=== PATIENT | female | born 1970 | race American Indian/Alaskan Native ===

== ENCOUNTER 2020-05-29 02:27 | Inpatient (IN) | payer MEDICAID, OTHER ==
--- NOTE | 2020-05-29 03:05 | Emergency Department Report ---
HPI - General Time Seen by Provider: 05/29/20 02:39 - HPI HPI: Room 8 The patient is a 49-year-old female present with a chief complaint of slow speech. Patient states she awakened at 01: 00 this morning and thought that her blood sugar was low secondary to having cramping in her left lower extremity and slowed speech. Patient denies weakness or paresthesia ED Past Medical Hx - Past Medical History Hx Hypertension: Yes Hx CVA: Yes (TIA) Hx Diabetes: Yes - Surgical History Past Surgical History?: No - Family History Family history: no significant - Social History Substance Use Type: None ED Review of Systems ROS: Stated complaint: SLURRED SPEECH Other details as noted in HPI Constitutional: no symptoms reported Respiratory: no symptoms reported Endocrine: no symptoms reported Neurological: other (Change in speech pattern). denies: weakness, paresthesias Physical Exam - Physical Exam Physical Exam: GENERAL: The patient is well-developed well-nourished female lying on stretcher with slow speech. [] HEENT: Normocephalic. Atraumatic. Extraocular motions are intact. Patient has moist mucous membranes. NECK: Supple. Trachea midline CHEST/LUNGS: Clear to auscultation. There is no respiratory distress noted. HEART/CARDIOVASCULAR: Regular. There is no tachycardia. There is no gallop rub or murmur. ABDOMEN: Abdomen is soft, nontender. Patient has normal bowel sounds. There is no abdominal distention. SKIN: There is no rash. There is no edema. There is no diaphoresis. NEURO: The patient is awake, alert, and oriented. The patient is cooperative. Cranial nerves II through XII grossly intact. Patient exhibits slight weakness raising right lower extremity from stretcher. The patient has slow speech MUSCULOSKELETAL: There is no evidence of acute injury. ED Medical Decision Making - Lab Data Result diagrams: 05/29/20 03:18 05/29/20 03:18 - EKG Data -: EKG Interpreted by Me EKG shows normal: sinus rhythm Rate: normal - EKG Data When compared to previous EKG there are: previous EKG unavailable Interpretation: nonspecific ST-T wave george (T wave inversion in lead III) - Radiology Data Radiology results: report reviewed (CTA brain, CTA neck, CT head), image reviewed (CTA brain, CTA neck, CT head) [facility] [address] [place] [address] Cat Scan Report Signed Patient: TASHA DONIS MR#: [id number] 433 : 1970 Acct:[id number] Age/Sex: 49 / F ADM Date: 05/29/20 Loc: ED Attending Dr: Ordering Physician: CROW MAJOR MD Date of Service: 05/29/20 Procedure(s): CT angio neck Accession Number(s): [id number] cc: CROW MAJOR MD CT angio neck INDICATION / CLINICAL INFORMATION: 49 years Female; stroke. TECHNIQUE: Thin cut axial images obtained through the head during IV bolus contrast administration. Sagittal, coronal, and 3 plane MIP reconstructions performed by the techno logist. NASCET type criteria used evaluate stenoses. All CT scans at this location are performed using CT dose reduction for ALARA by means of automated exposure control. COMPARISON: None available. FINDINGS: CAROTID ARTERIES: There is mild plaque involving proximal internal carotid arteries bilaterally. However, there is no significant stenosis by NASCET criteria. The common carotid arteries also demonstrate appropriate caliber bilaterally. VERTEBRAL ARTERIES: There is mild relative hypoplasia of the left vertebral artery. There is no significant focal narrowing involving the vertebral arteries bilaterally. ARCH: There is no significant stenosis of the arch vessels. ADDITIONAL FINDINGS: Rem ainder of the surrounding soft tissues are grossly normal. IMPRESSION: There is mild atherosclerotic plaque involving proximal internal carotid arteries bilaterally. However, there is no significant stenosis by NASCET criteria. Signer Name: Tima Daley MD Signed: 05/29/2020 3:37 AM Workstation Name: [id number] Transcribed By: MR Dictated By: Tima Daley MD Electronically Authenticated By: Tima Daley MD Signed Date/Time: 05/29/20336 DD/ 033 TD/TT: CT angio head INDICATION / CLINICAL INFORMATION: 49 years Female; stroke. TECHNIQUE: Thin cut axial images obtained through the head during IV bolus contrast administration. Sagittal, coronal, and 3 plane MIP reconstructions performed by the technologist. NASCET type criteria used evaluate stenoses. Automated exposure control utilized for radiation reduction purposes. COMPARISON: None available. FINDINGS: INTERNAL CAROTID ARTERIES: There is scattered atherosclerotic calcification involving distal internal carotid arteries with mild segmental narrowing by NASCET criteria, particularly involving the cavernous segments. 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 There is no significant focal stenosis involving the basilar artery. CEREBRAL ARTERIES: There is developmental hypoplasia of the A1 segment of the right EDOUARD. There is no CTA evidence of significant stenosis involving proximal cerebral arteries or evidence of large v essel occlusion. ANEURYSM: There is an aneurysm extending medially and superiorly from the ophthalmic segment of the left ICA measuring 3.0 mm AP by 3.5 mm longitudinally the findings are most consistent with incidental infundibulum of the right posterior communicating artery. ADDITIONAL FINDINGS: T here is developmental hypoplasia of the left transverse and sigmoid sinuses. IMPRESSION: There is atherosclerotic calcification involving distal internal carotid arteries with mild segmental narrowing. There is no CT evidence of large vessel occlusion. 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 Signer Name: Tima Daley MD Signed: 05/29/2020 3:47 AM Workstation Name: [id number] Transcribed By: MR Dictated By: Tima Daley MD Electronically Authenticated By: Tima Daley MD Signed Date/Time: 05/29/20346 DD/ 6 TD/TT: [facility] [address] [place] [address] Cat Scan Report Signed Patient: TASHA DONIS MR#: [id number] : 1970 Acct:[id number] Age/Sex: 49 / F ADM Date: 05/29/20 Loc: ED Attending Dr: Ordering Physician: MICHELE GOINS MD Date of Service: 05/29/20 Procedure(s): CT head/brain wo con Accession Number(s): [id number] cc: MICHELE GOINS MD CT head without contrast INDICATION : Altered speech. Code stroke TECHNIQUE: Axial imaging performed from the skull apex through the skull base without the use of contrast. All CT examinations performed at this facility utilize dose modulation, iterative reconstruction or weight-based dosing, when appropriate, to reduce radiation dose to as low as reasonably achievable. COMPARISON: None FINDINGS: No acute intracranial hemorrhage or parenchymal abnormality. Ventricles are normal in size and appear symmetric. Soft tissues including the orbits appear normal. No acute osseous abnormality. Sinuses and mastoid air ce lls are clear. IMPRESSION: No acute abnormality. Code stroke report was called to Dr. Goins by Dr. Zhao view telephone at 2:05 PM Central time on the day of the exam. Signer Name: Esequiel Zhao MD Signed: 05/29/2020 3:05 AM Workstation Name: [id number] Transcribed By: Dictated By: Esequiel Zhao MD Electronically Authenticated By: Esequiel Zhao MD Signed Date/Time: 05/29/20304 DD/ 1 TD/TT: - Differential Diagnosis CVA, TIA Critical care attestation.: If time is entered above; I have spent that time in minutes in the direct care of this critically ill patient, excluding procedure time. ED Disposition Clinical Impression: CVA (cerebral vascular accident) Disposition: -09 OP ADMIT IP TO THIS HOSP Is pt being admited?: Yes Does the pt Need Aspirin: Yes Condition: Fair Referrals: PRIMARY CARE, [Primary Care Provider] - 3-5 Days Time of Disposition: 04:02 (Hospitalist paged (Dr Faust))
--- NOTE | 2020-05-29 03:06 | Consultation ---
History of Present Illness Consult date: 05/29/20 Assessment and Plan [facility] Date of Service: 05/29/2020 02:38:51 Impression: Rule Out Acute Ischemic Stroke Comments/Sign-Out: 49 yo F h/o TIA, HTN, DM, on Eliquis p/w episode of generalized weakness and speech abnormality upon waking up. Pt had previous TIA consisting of hallucinations. She has been taking Eliquis daily. Pt's symptoms improving per [place]. History from patient. Mechanism of Stroke: Not Clear Metrics: Last Known Well: 05/28/2020 22:00:00 [facility] Notification Time: 05/29/2020 02:38:27 Arrival Time: 05/29/2020 02:38:00 Stamp Time: 05/29/2020 02:38:51 Time First Login Attempt: 05/29/2020 02:42:35 Video Start Time: 05/29/2020 02:42:35 Symptoms: generalized weakness, speech abnormality NIHSS Start Assessment Time: 05/29/2020 02:46:38 Patient is not a candidate for tPA. Patient was not deemed candidate for tPA thrombolytics because of Use of NOAs within [address] head showed no acute hemorrhage or acute core infarct. Lower Likelihood of Large Vessel Occlusion but Following Stat Studies are Recommended CTA Head and Neck. Sign Out: Inpatient admission and stroke workup Discussed with Emergency Department Provider History of Present Illness: Patient is a 49 year old Female. Patient was brought by EMS for symptoms of generalized weakness, speech abnormality 49 yo F h/o TIA, HTN, DM, on Eliquis p/w episode of generalized weakness and speech abnormality upon waking up. Pt had previous TIA consisting of hallucinations. She has been taking Eliquis daily. Pt's symptoms improving per bellstaff. History from patient. There is history of Recent Anticoagulants. Examination: BP(148/73), Blood Glucose(301) 1A: Level of Consciousness - Alert; keenly responsive + 0 1B: Ask Month and Age - Both Questions Right + 0 1C: Blink Eyes & Squeeze Hands - Performs Both Tasks + 0 2: Test Horizontal Extraocular Movements - Normal + 0 3: Test Visual [place] - No Visual Loss + 0 4: Test Facial Palsy (Use Grimace if Obtunded) - Normal symmetry + 0 5A: Test Left Arm Motor Drift - No Drift for 10 Seconds + 0 5B: Test Right Arm Motor Drift - No Drift for 10 Seconds + 0 6A: Test Left Leg Motor Drift - No Drift for 5 Seconds + 0 6B: Test Right Leg Motor Drift - Drift, but doesn't hit bed + 1 7: Test Limb Ataxia (FNF/Heel-Sharma) - No Ataxia + 0 8: Test Sensation - Mild-Moderate Loss: Less Sharp/More Dull + 1 9: Test Language/Aphasia - Normal; No aphasia + 0 10: Test Dysarthria - Normal + 0 11: Test Extinction/Inattention - No abnormality + 0 NIHSS Score: 2 Patient/Family was informed the Neurology Consult would happen via TeleHealth consult by way of interactive audio and video telecommunications and consented to receiving care in this manner. Due to the immediate potential for life-threatening deterioration due to underlying acute neurologic illness, I spent 35 minutes providing critical care. This time includes time for face to face visit via telemedicine, review of medical records, imaging studies and discussion of findings with providers, the patient and/or family. Dr Haydee Landon [facility] Case [id number]
--- NOTE | 2020-05-29 03:10 | Cat Scan Report ---
CT head without contrast INDICATION : Altered speech. Code stroke TECHNIQUE: Axial imaging performed from the skull apex through the skull base without the use of con trast. All CT examinations performed at this facility utilize dose modulation, iterative reconstruct ion or weight-based dosing, when appropriate, to reduce radiation dose to as low as reasonably achiev able. COMPARISON: None FINDINGS: No acute intracranial hemorrhage or parenchymal abnormality. Ventricles are normal in si ze and appear symmetric. Soft tissues including the orbits appear normal. No acute osseous abnorm ality. Sinuses and mastoid air cells are clear. IMPRESSION: No acute abnormality. Code stroke report was called to Dr. Estevez by Dr. Zhao view telephone at 2:05 PM Central time on the d ay of the exam. Signer Name: Esequiel Zhao MD Signed: 05/29/2020 3:05 AM Workstation Name: [id number]
[2020-05-29 03:28] LABS: Basophils # (Auto) 0.1 K/mm3 (0.0-0.1); Basophils % (Auto) 1.1 % (0.0-1.8); Eosinophils # (Auto) 0.1 K/mm3 (0.0-0.4); Eosinophils % (Auto) 0.8 % (0.0-4.3); Lymphocytes # (Auto) 2.1 K/mm3 (1.2-5.4); Lymphocytes % (Auto) 23.2 % (13.4-35.0); Mean Corpuscular HGB Conc 30 % (30-34); Monocytes # (Auto) 0.7 K/mm3 (0.0-0.8); Platelet Count 258 K/mm3 (140-440); Red Blood Count 5.15 M/mm3 (3.65-5.03); Red Cell Distribution Width 19.9 % (13.2-15.2)
[2020-05-29 03:31] LABS: Hematocrit 32.8 % (30.3-42.9); Hemoglobin 9.8 gm/dl (10.1-14.3); Mean Corpuscular Volume 64 fl (79-97)
[2020-05-29 03:40] LABS: BUN/Creatinine Ratio 19; Blood Urea Nitrogen 15 mg/dL (7-17); Calcium 8.9 mg/dL (8.4-10.2); Hemolysis Index 3
[2020-05-29 03:41] LABS: INR 1.1 (0.87-1.13)
--- NOTE | 2020-05-29 03:42 | Cat Scan Report ---
CT angio neck INDICATION / CLINICAL INFORMATION: 49 years Female; stroke. TECHNIQUE: Thin cut axial images obtained through the head during IV bolus contrast administration. S agittal, coronal, and 3 plane MIP reconstructions performed by the technologist. NASCET type criteria used evaluate stenoses. All CT scans at this location are performed using CT dose reduction for ALAR A by means of automated exposure control. COMPARISON: None available. FINDINGS: CAROTID ARTERIES: There is mild plaque involving proximal internal carotid arteries bilaterally. Florez alda, there is no significant stenosis by NASCET criteria. The common carotid arteries also demonstrat e appropriate caliber bilaterally. VERTEBRAL ARTERIES: There is mild relative hypoplasia of the left vertebral artery. There is no signi ficant focal narrowing involving the vertebral arteries bilaterally. ARCH: There is no significant stenosis of the arch vessels. ADDITIONAL FINDINGS: Remainder of the surrounding soft tissues are grossly normal. IMPRESSION: There is mild atherosclerotic plaque involving proximal internal carotid arteries bilaterally. Howeve r, there is no significant stenosis by NASCET criteria. Signer Name: Tima Daley MD Signed: 05/29/2020 3:37 AM Workstation Name: [id number]
[2020-05-29 03:44] LABS: Partial Thromboplastin Time 30.4 Sec. (24.2-36.6); Thrombin Time 17.4 Sec. (15.1-19.6)
--- NOTE | 2020-05-29 03:51 | Cat Scan Report ---
CT angio head INDICATION / CLINICAL INFORMATION: 49 years Female; stroke. TECHNIQUE: Thin cut axial images obtained through the head during IV bolus contrast administration. S agittal, coronal, and 3 plane MIP reconstructions performed by the technologist. NASCET type criteria used evaluate stenoses. Automated exposure control utilized for radiation reduction purposes. COMPARISON: None available. FINDINGS: INTERNAL CAROTID ARTERIES: There is scattered atherosclerotic calcification involving distal internal carotid arteries with mild segmental narrowing by NASCET criteria, particularly involving the cavern ous segments. 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 There is no significant focal stenosis involving the basilar artery. CEREBRAL ARTERIES: There is developmental hypoplasia of the A1 segment of the right EDOUARD. There is no CTA evidence of significant stenosis involving proximal cerebral arteries or evidence of large vessel occlusion. ANEURYSM: There is an aneurysm extending medially and superiorly from the ophthalmic segment of the l eft ICA measuring 3.0 mm AP by 3.5 mm longitudinally the findings are most consistent with incidental infundibulum of the right posterior communicating artery. ADDITIONAL FINDINGS: There is developmental hypoplasia of the left transverse and sigmoid sinuses. IMPRESSION: There is atherosclerotic calcification involving distal internal carotid arteries with mild segmental narrowing. There is no CT evidence of large vessel occlusion. 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 Signer Name: Tima Daley MD Signed: 05/29/2020 3:47 AM Workstation Name: [id number]
[2020-05-29] MEDS ORDERED: ASPIRIN 325 MG TAB PO ONE (04:04)
[2020-05-29] MEDS ORDERED: CYCLOBENZAPRINE 10 MG TAB PO ONE (04:18)
--- NOTE | 2020-05-29 05:52 | History and Physical Report ---
History of Present Illness Date of examination: 05/29/20 Date of admission: 05/29/20 Chief complaint: Chief complaint is speech impairment History of present illness: History of presenting illness, patient is a 49-year-old female who woke up early this morning with speech impairment that manifested as slurred speech and also patient had cramps in the lower extremities and said for brief period of time she could not see properly. There was no history of chest pain, shortness of breath, fever or chills or nausea and vomiting, patient also denied history of dizziness or headache. Past History Past Medical History: diabetes, hypertension, other (TIA) Review of Systems Constitutional: weakness, no fever, no chills, no fatigue Eyes: bilateral: other (NO BILATERAL EYE SYMPTOMS) Ears, nose, mouth and throat: no ear pain, no ear discharge, no nose pain, no nasal congestion, no nasal discharge, no sore throat Breasts: deferred Cardiovascular: high blood pressure, no chest pain, no palpitations, no lightheadedness, no shortness of breath Respiratory: no cough, no hemoptysis, no shortness of breath, no dyspnea on exertion Gastrointestinal: no nausea, no vomiting, no loss of appetite, no heartburn Genitourinary Female: no Rectal: no pain, no itching Musculoskeletal: no neck stiffness, no neck pain, no shooting arm pain, no arm numbness/tingling, no low back pain, no shooting leg pain, no hot joints, no morning stiffness, no muscle weakness, no muscle cramps, no myalgias Integumentary: no rash, no pruritis, no redness, no sores, no wounds, no jaundice, no boils, no lesions, no darkening of skin, no depigmentation, no acne, no hirsutism Neurological: weakness, change in speech, no parathesias, no numbness, no tingling, no seizures, no syncope, no vertigo, no headaches, no convulsions, no change in mentation, no confusion, no sensory deficit Psychiatric: no anxiety, no sleep disturbances, no hypersomnia, no depression, no hopelessness Endocrine: no polydipsia, no polyuria, no nocturia, no palpatations Hematologic/Lymphatic: no easy bruising, no easy bleeding, no lymphadenopathy, no lymphedema Exam - Constitutional Vitals: Temp Pulse Resp BP Pulse Ox 98.0 F 78 18 147/78 100 05/29/20 02:40 05/29/20 02:40 05/29/20 03:15 05/29/20 02:40 05/29/20 02:40 General appearance: Present: no acute distress - EENT Eyes: Present: PERRL, EOM intact. Absent: conjunctival injection ENT: hearing intact, clear oral mucosa, dentition normal - Neck Neck: Present: supple, normal ROM - Respiratory Respiratory effort: normal - Cardiovascular Rhythm: regular Heart Sounds: Present: S1 & S2. Absent: gallop, systolic murmur, diastolic murmur - Extremities Extremities: no ischemia, No edema Peripheral Pulses: within normal limits - Abdominal General gastrointestinal: Present: soft, non-tender, non-distended. Absent: tender, distended, rigid, hepatomegaly, splenomegaly Female genitourinary: Present: deferred - Rectal Rectal Exam: deferred - Integumentary Integumentary: Present: clear, warm, dry. Absent: jaundice, rash - Musculoskeletal Musculoskeletal: strength equal bilaterally - Psychiatric Psychiatric: appropriate mood/affect - Neurologic Neurologic: CNII-XII intact Results - Labs CBC & Chem 7: 05/29/20 03:18 05/29/20 03:18 Labs: Laboratory Last Values WBC 9.0 K/mm3 (4.5-11.0) 05/29/20 03:18 RBC 5.15 M/mm3 (3.65-5.03) H 05/29/20 03:18 Hgb 9.8 gm/dl (10.1-14.3) L 05/29/20 03:18 Hct 32.8 % (30.3-42.9) 05/29/20 03:18 MCV 64 fl (79-97) L 05/29/20 03:18 MCH 19 pg (28-32) L 05/29/20 03:18 MCHC 30 % (30-34) 05/29/20 03:18 RDW 19.9 % (13.2-15.2) H 05/29/20 03:18 Plt Count 258 K/mm3 (140-440) 05/29/20 03:18 Lymph % (Auto) 23.2 % (13.4-35.0) 05/29/20 03:18 Heard % (Auto) 8.0 % (0.0-7.3) H 05/29/20 03:18 Eos % (Auto) 0.8 % (0.0-4.3) 05/29/20 03:18 Baso % (Auto) 1.1 % (0.0-1.8) 05/29/20 03:18 Lymph # 2.1 K/mm3 (1.2-5.4) 05/29/20 03:18 Heard # 0.7 K/mm3 (0.0-0.8) 05/29/20 03:18 Eos # 0.1 K/mm3 (0.0-0.4) 05/29/20 03:18 Baso # 0.1 K/mm3 (0.0-0.1) 05/29/20 03:18 Seg Neutrophils % 66.9 % (40.0-70.0) 05/29/20 03:18 Seg Neutrophils # 6.0 K/mm3 (1.8-7.7) 05/29/20 03:18 PT 14.3 Sec. (12.2-14.9) 05/29/20 03:18 INR 1.10 (0.87-1.13) 05/29/20 03:18 APTT 30.4 Sec. (24.2-36.6) 05/29/20 03:18 Thrombin Time 17.4 Sec. (15.1-19.6) 05/29/20 03:18 VBG pH 7.409 (7.320-7.420) 05/29/20 03:18 Sodium 130 mmol/L (137-145) L 05/29/20 03:18 Potassium 3.8 mmol/L (3.6-5.0) 05/29/20 03:18 Chloride 92.8 mmol/L (98-107) L 05/29/20 03:18 Carbon Dioxide 26 mmol/L (22-30) 05/29/20 03:18 Anion Gap 15 mmol/L 05/29/20 03:18 BUN 15 mg/dL (7-17) 05/29/20 03:18 Creatinine 0.8 mg/dL (0.7-1.2) 05/29/20 03:18 Estimated GFR > 60 ml/min 05/29/20 03:18 BUN/Creatinine Ratio 19 % 05/29/20 03:18 Glucose 361 mg/dL (65-100) H 05/29/20 03:18 Calcium 8.9 mg/dL (8.4-10.2) 05/29/20 03:18 Assessment and Plan - Patient Problems (1) CVA (cerebral vascular accident) Current Visit: Yes Status: Acute Plan to address problem: 1. TELEMETRY ADMISSION 2. MRI BRAIN WITHOUT CONTRAST 3. CAROTID DOPPLER (BILATERAL) 4. 2 D ECHOCARDIOGRAM 5. SPEECH THERAPY CONSULT 6 PHYSICAL THERAPY CONSULT 7. ASPIRIN PO 8. I.V MORPHINE PRN PAIN 9.I.V ZOFRAN PRN NAUSEA AND VOMITING 10.NEUROL;OGY CONSULT 11. OXYGEN BY NASAL CANNULA 12 NPO UNTIL SWALLOW TEST PASSED.
[2020-05-29] MEDS ORDERED: ONDANSETRON 4 MG/2 ML INJ ONE (06:08)
[2020-05-29] MEDS ORDERED: ONDANSETRON 4 MG/2 ML INJ IV PRN (06:16)
[2020-05-29] MEDS ORDERED: MORPHINE 2 MG/1 ML INJ IV PRN (06:16)
[2020-05-29 08:00] LABS: Bacteria,Urine 1+ /HPF (Negative); Bilirubin,Urine NEG (Negative); Blood,Urine NEG (Negative); Color,Urine Yellow (Yellow); Mucus,Urine FEW /HPF; Protein,Urine <15 mg/dL mg/dL (Negative); Urobilinogen,Urine < 2.0 mg/dL (<2.0)
--- NOTE | 2020-05-29 09:49 | Vascular Lab Report ---
BILATERAL CAROTID DOPPLER ULTRASOUND INDICATION : CVA TECHNIQUE: Grayscale and color Doppler imaging performed through the neck. COMPARISON: None FINDINGS: Right: There is mild soft plaque in the carotid bulb. Peak systolic velocity in the CCA is 57 cm/s with end-diastolic velocity of 15 cm/s. Peak systolic velocity in the proximal ICA is 67 cm/s with en d-diastolic velocity of 22 cm/s. ICA to CCA ratio is less than 2. There is antegrade flow in the ECA and the vertebral artery. Left: There is no significant atherosclerotic disease. Peak systolic velocity in the CCA is 68 cm/s w ith end-diastolic velocity of 21 cm/s. Peak systolic velocity in the proximal ICA is 60 cm/s with end -diastolic velocity of 26 cm/s. ICA to CCA ratio is less than 2. There is antegrade flow in the ECA and the vertebral artery. IMPRESSION: No hemodynamically significant stenosis by NASCET criteria. Doppler velocities indicate l ess than 50% luminal narrowing bilaterally. Signer Name: Cade Zaman Jr, MD Signed: 05/29/2020 9:45 AM Workstation Name: [id number]
[2020-05-29] MEDS: ASPIRIN 325 MG TAB PO SCH (11:47)
--- NOTE | 2020-05-29 12:17 | Magnetic Resonance Report ---
MRI BRAIN WITHOUT CONTRAST INDICATION / CLINICAL INFORMATION: Cerebrovascular accident. Speech disturbance. TECHNIQUE: Multiplanar, multisequence MR images of the brain were obtained. COMPARISON: MRI brain 07/20/2012 and CTA head 05/29/2020. FINDINGS: BRAIN / INTRACRANIAL CONTENTS: Ventricles and cortical sulci are normal in size and configuration. Th ere is no mass effect. No evidence of intracranial hemorrhage or extra-axial fluid collection is seen . No significant areas of abnormal brain parenchymal signal intensity are identified. There is no ind ication of remote cortical infarction. Diffusion weighted scans are negative. There is no indication of acute ischemic injury. The brainstem and cerebellum have an unremarkable appearance. MIDLINE STRUCTURES:No abnormalities are seen to involve the pituitary gland. Pineal region has an unr emarkable appearance. CRANIOCERVICAL JUNCTION: No abnormalities are identified at the craniocervical junction. VASCULAR FLOW-VOIDS: Normal flow-voids are present within the major intracranial vessels. ORBITS: The orbits have an unremarkable appearance. SINUSES / MASTOIDS: There is no indication of inflammatory disease in the paranasal sinuses or mastoi d air cells. ADDITIONAL FINDINGS: None. IMPRESSION: 1. No significant abnormality on MRI brain. No significant interval change in comparison to previous study. Signer Name: Fazal Lopez MD Signed: 05/29/2020 12:13 PM Workstation Name: [id number]
--- NOTE | 2020-05-29 17:42 | Consultation ---
History of Present Illness Consult date: 05/29/20 Reason for Consult: slurred speech and left facial numbness History of present illness: According to pt. The patient is a 49-year-old female present with a chief complaint of slow speech. Patient states she awakened at 01: 00 this morning and thought that her blood sugar was low secondary to having cramping in her left lower extremity and slowed speech. this is associted with left facial numbness she is on Eliquis According to her she last had CVA 2012 ?? in ER she had CT brain is unremarkable - Past Medical History Hx Hypertension: Yes Hx CVA: Yes (TIA) Hx Diabetes: Yes - Surgical History Past Surgical History?: No - Family History Family history: no significant - Social History Substance Use Type: None ED Review of Systems ROS: Stated complaint: SLURRED SPEECH Other details as noted in HPI Constitutional: no symptoms reported Respiratory: no symptoms reported Endocrine: no symptoms reported Neurological: other (Change in speech pattern). denies: weakness, paresthesias Past History Past Medical History: diabetes, hypertension, other (TIA) Medications and Allergies Allergies Allergy/AdvReac Type Severity Reaction Status Date / Time labetalol Allergy Unknown Verified 05/29/20 05:55 Home Medications Medication Instructions Recorded Confirmed Last Taken Type Apixaban [Eliquis] 5 mg PO QDAY 05/29/20 05/29/20 1 Day Ago History ~05/28/20 Aspirin [Aspirin BABY CHEW TAB] 81 mg PO QDAY 05/29/20 05/29/20 1 Day Ago History ~05/28/20 Insulin Degludec [Tresiba] 48 unit SQ QAM 05/29/20 05/29/20 1 Day Ago History ~05/28/20 Levothyroxine [Synthroid] 50 mcg PO QAM 05/29/20 05/29/20 1 Day Ago History ~05/28/20 Lispro Insulin [HumaLOG] 18 unit SQ ACHS 05/29/20 05/29/20 1 Day Ago History ~05/28/20 Simvastatin 40 mg PO QDAY 05/29/20 05/29/20 1 Day Ago History ~05/28/20 hydroCHLOROthiazide 12.5 mg PO QDAY 05/29/20 05/29/20 1 Day Ago History [Hydrochlorothiazide] ~05/28/20 Active Meds: Active Medications Aspirin (Aspirin) 325 mg PO QDAY [facility] Last Admin: 05/29/20 11:47 Dose: Not Given Documented by: Atorvastatin Calcium (Lipitor) 40 mg PO QHS [facility] Cyclobenzaprine HCl (Flexeril) 10 mg PO Q8H PRN PRN Reason: Muscle Spasm Ondansetron HCl (Zofran) 4 mg IV Q8H PRN PRN Reason: Nausea And Vomiting Last Admin: 05/29/20 05:45 Dose: 4 mg Documented by: Physical Examination - Vital Signs Vital Signs: Vital Signs Temp Pulse Resp BP Pulse Ox 98.0 F 78 18 147/78 100 05/29/20 02:40 05/29/20 02:40 05/29/20 02:40 05/29/20 02:40 05/29/20 02:40 - Constitutional General appearance: comfortable - EENT EENT: Present: PERRL, mucous membranes moist, vision intact, pharyngeal erythema - Respiratory Respiratory: Present: chest non-tender - Cardiovascular Cardiovascular: Present: normal S1, normal S2 Extremities: Present: no peripheral edema bilatateraly, no clubbing, cyanosis, no inflammation - Gastrointestinal Gastrointestinal: Present: normoactive bowel sounds, non-tender - Integumentary Integumentary: Present: normal - Neurologic Cranial nerve examination: PERRL, EOMI, VFF, intact shoulder shrug, intact gag reflex, other (objective decrease sensation on left side) Detailed motor examination: grossly full strength in Reflex and gait examination: intact Cerebellar examination: ataxia - Psychiatric Psychiatric: Present: mood/affect appropriate - Level of Consciousness 1a. Level of Consciousness: alert/keenly responsive - LOC Questions 1b. LOC Questions: answers both correctly - LOC Command 1c. LOC Commands: performs tasks correctly - Best Gaze 2. Best Gaze: normal - Visual 3. Visual: no visual loss - Facial Palsy 4. Facial Palsy: normal symmetrical movement - Motor Arm 5a. Motor Arm Left: no drift 5b. Motor Arm Right: no drift - Motor Leg 6a. Motor Leg Left: no drift 6b. Motor Leg Right: no drift - Limb Ataxia 7. Limb Ataxia: absent - Sensory 8. Sensory: mild/moderate sensory loss - Best Language 9. Best Language: no aphasia - Dysarthria 10. Dysarthria: normal - Extinction and Inattention 11. Extinction/Inattention: no abnormality - Scoring Total Score: 1 Stroke Severity: Minor Stroke Results - Laboratory Findings CBC and BMP: 05/29/20 03:18 05/29/20 03:18 Abnormal Lab Findings: Abnormal Labs 05/29/20 05/29/20 05/29/20 03:18 03:18 06:57 RBC 5.15 H Hgb 9.8 L MCV 64 L MCH 19 L RDW 19.9 H [place] % (Auto) 8.0 H Sodium 130 L Chloride 92.8 L Glucose 361 H Ur Specific [place] > 1.059 H Assessment and Plan The patient is a 49-year-old female present with a chief complaint of slow speech. Patient states she awakened at 01: 00 this morning and thought that her blood sugar was low secondary to having cramping in her left lower extremity and slowed speech. this is associated with left facial numbness she is on Eliquis According to her she last had CVA 2012 ?? in ER she had CT brain is unremarkable her NIH is #1 her MRI brain and CTA are unremarkable she continues to complain with left facial numbness no weakness etiology she is on Eliquise is not clear ? AF suggest cardiac moniter add ASA 81 mg daily send for fast lipid profil keep on lipitor 40 mg for now check echo cardiogram will follow as needed
--- NOTE | 2020-05-29 19:48 | Event Note ---
Date: 05/29/20 Patient seen and examined stable in no acute distress. CONTINUE TO MONITOR CLOSELY, AWAIT ORDERED TESTING.
[2020-05-29] MEDS ORDERED: DEXTROSE 50% IN WATER (25GM) 50 ML SYRINGE IV PRN (23:33)
[2020-05-30] MEDS ORDERED: CYCLOBENZAPRINE 10 MG TAB ONE (00:47)
[2020-05-30] MEDS ORDERED: INSULIN LISPRO 100 UNIT/ML SUB-Q ONE (00:49)
[2020-05-30] MEDS: CYCLOBENZAPRINE 10 MG TAB PO PRN (00:50)
[2020-05-30] MEDS: INSULIN LISPRO 100 UNIT/ML SUB-Q SCH ×5 (00:51→22:16)
[2020-05-30] MEDS: LEVOTHYROXINE 50 MCG TAB PO SCH (06:42)
[2020-05-30] MEDS ORDERED: NON-FORMULARY EACH (Simvastatin [Simvastatin] 40 MG) PO SCH (10:00)
--- NOTE | 2020-05-30 12:31 | Progress Note ---
Assessment and Plan Assessment and plan: Acute CVA. Patient reportedly with dysarthria and left facial numbness. MRI/CTA are unremarkable. Carotid Doppler shows no hemodynamic significant stenosis. Echocardiogram reveals left ventricular systolic function moderately decreased with an EF of 40 to 45%. Patent foraminal valve is not demonstrated. Await PT evaluation for disposition. Diabetes mellitus type 2. Continue Accu-Cheks and sliding scale insulin. We will add Lantus for long-acting insulin coverage. Hypertension. Continue antihypertensive medications. History Interval history: No new issues overnight. Hospitalist Physical - Constitutional Vitals: Temp Pulse Resp BP Pulse Ox 98.1 F 72 20 131/71 99 05/30/20 08:02 05/30/20 08:02 05/30/20 08:02 05/30/20 08:02 05/30/20 08:02 General appearance: Present: no acute distress - EENT Eyes: Present: PERRL, EOM intact ENT: hearing intact, clear oral mucosa, dentition normal - Neck Neck: Present: supple, normal ROM - Respiratory Respiratory effort: normal Respiratory: bilateral: CTA - Cardiovascular Rhythm: regular Heart Sounds: Present: S1 & S2. Absent: gallop, rub - Extremities Extremities: no ischemia, No edema, Full ROM - Abdominal General gastrointestinal: soft, non-tender, non-distended, normal bowel sounds - Integumentary Integumentary: Present: clear, warm, dry - Neurologic Neurologic: CNII-XII intact, moves all extremities Results - Labs CBC & Chem 7: 05/29/20 03:18 05/29/20 03:18 Labs: Laboratory Last Values WBC 9.0 K/mm3 (4.5-11.0) 05/29/20 03:18 RBC 5.15 M/mm3 (3.65-5.03) H 05/29/20 03:18 Hgb 9.8 gm/dl (10.1-14.3) L 05/29/20 03:18 Hct 32.8 % (30.3-42.9) 05/29/20 03:18 MCV 64 fl (79-97) L 05/29/20 03:18 MCH 19 pg (28-32) L 05/29/20 03:18 MCHC 30 % (30-34) 05/29/20 03:18 RDW 19.9 % (13.2-15.2) H 05/29/20 03:18 Plt Count 258 K/mm3 (140-440) 05/29/20 03:18 Lymph % (Auto) 23.2 % (13.4-35.0) 05/29/20 03:18 [place] % (Auto) 8.0 % (0.0-7.3) H 05/29/20 03:18 Eos % (Auto) 0.8 % (0.0-4.3) 05/29/20 03:18 Baso % (Auto) 1.1 % (0.0-1.8) 05/29/20 03:18 Lymph # 2.1 K/mm3 (1.2-5.4) 05/29/20 03:18 [place] # 0.7 K/mm3 (0.0-0.8) 05/29/20 03:18 Eos # 0.1 K/mm3 (0.0-0.4) 05/29/20 03:18 Baso # 0.1 K/mm3 (0.0-0.1) 05/29/20 03:18 Seg Neutrophils % 66.9 % (40.0-70.0) 05/29/20 03:18 Seg Neutrophils # 6.0 K/mm3 (1.8-7.7) 05/29/20 03:18 PT 14.3 Sec. (12.2-14.9) 05/29/20 03:18 INR 1.10 (0.87-1.13) 05/29/20 03:18 APTT 30.4 Sec. (24.2-36.6) 05/29/20 03:18 Thrombin Time 17.4 Sec. (15.1-19.6) 05/29/20 03:18 VBG pH 7.409 (7.320-7.420) 05/29/20 03:18 Sodium 130 mmol/L (137-145) L 05/29/20 03:18 Potassium 3.8 mmol/L (3.6-5.0) 05/29/20 03:18 Chloride 92.8 mmol/L (98-107) L 05/29/20 03:18 Carbon Dioxide 26 mmol/L (22-30) 05/29/20 03:18 Anion Gap 15 mmol/L 05/29/20 03:18 BUN 15 mg/dL (7-17) 05/29/20 03:18 Creatinine 0.8 mg/dL (0.7-1.2) 05/29/20 03:18 Estimated GFR > 60 ml/min 05/29/20 03:18 BUN/Creatinine Ratio 19 % 05/29/20 03:18 Glucose 361 mg/dL (65-100) H 05/29/20 03:18 POC Glucose 242 (70-105) H 05/30/20 11:41 Calcium 8.9 mg/dL (8.4-10.2) 05/29/20 03:18 Urine Color Yellow (Yellow) 05/29/20 06:57 Urine Turbidity Clear (Clear) 05/29/20 06:57 Urine pH 5.0 (5.0-7.0) 05/29/20 06:57 Ur Specific [place] > 1.059 (1.003-1.030) H 05/29/20 06:57 Urine Protein <15 mg/dl mg/dL (Negative) 05/29/20 06:57 Urine Glucose (UA) >=500 mg/dL (Negative) 05/29/20 06:57 Urine Ketones Neg mg/dL (Negative) 05/29/20 06:57 Urine Blood Neg (Negative) 05/29/20 06:57 Urine Nitrite Neg (Negative) 05/29/20 06:57 Urine Bilirubin Neg (Negative) 05/29/20 06:57 Urine Urobilinogen < 2.0 mg/dL (<2.0) 05/29/20 06:57 Ur Leukocyte Esterase Neg (Negative) 05/29/20 06:57 Urine WBC (Auto) 1.0 /HPF (0.0-6.0) 05/29/20 06:57 Urine RBC (Auto) 3.0 /HPF (0.0-6.0) 05/29/20 06:57 U Epithel Cells (Auto) 1.0 /HPF (0-13.0) 05/29/20 06:57 Urine Bacteria (Auto) 1+ /HPF (Negative) 05/29/20 06:57 Urine Mucus Few /HPF 05/29/20 06:57 - Diagnostic Impressions Diagnostic Impressions: Echocardiogram 05/29/20 06:08 Transthoracic Echocardiogram Indication: CVA BP: 142/77 HR: 67 Conclusions *The left ventricular size is mild to moderately dilated. *Global left ventricular systolic function is moderately decreased. *The estimated ejection fraction is 40-45%. *There is mild mitral regurgitation. *There is trace tricuspid regurgitation. *A patent foramen ovale is not demonstrated by agitated saline contrast. Findings Left Ventricle: The left ventricular size is mild to moderately dilated. Mild concentric left ventricular hypertrophy is observed. Global left ventricular systolic function is moderately decreased. The estimated ejection fraction is 40-45%. Left Atrium: The left atrial chamber size is normal. Right Ventricle: The right ventricular cavity size is normal. The right ventricular global systolic function is normal. Right Atrium: The right atrial cavity size is normal. A patent foramen ovale is not demonstrated by agitated saline contrast. Aortic Valve: The aortic valve is trileaflet. There is no evidence of aortic regurgitation. There is no evidence of aortic stenosis. Mitral Valve: The mitral valve leaflets appear normal. There is mild mitral regurgitation. There is no evidence of mitral stenosis. Tricuspid Valve: The tricuspid valve leaflets are normal. There is trace tricuspid regurgitation. No pulmonary hypertension is noted. Pulmonic Valve: There is trace pulmonic regurgitation. Pericardium: There is no pericardial effusion. Aorta: There is no dilatation of the ascending aorta. There is no dilatation of the aortic root. Venous: The inferior vena cava appears normal in size. Contrast: Intravenous agitated saline contrast was used to assess intracardiac shunting. Measurements Chambers 2D Name Value Normal Range IVSd (2D) 1.04 cm (0.6 - 1.1) LVPWd (2D) 1.01 cm (0.6 - 1.1) LVIDd (2D) 4.15 cm (3.7 - 5.6) LVIDs (2D) 3.15 cm (2 - 3.8) LV FS (2D) 24.13 % - EF Teichholz (2D) 48.45 % - Ao root diameter (2D) 2.7 cm (2 - 3.7) Volumes/Mass Name Value Normal Range LA ESV SP 4CH (A/L) 25.07 ml - LA ESV SP 2CH (A/L) 26.74 ml - LA ESV BP (A/L) 26.95 ml - LA ESV SP 4CH (MOD) 23.68 ml - LA ESV SP 2CH (MOD) 25.62 ml - Diastolic/Systolic Function Name Value Normal Range MV E-wave Vmax 0.67 m/sec - MV deceleration time 221.17 msec - MV A-wave Vmax 0.73 m/sec - MV E:A ratio 0.93 ratio - Aortic Valve Name Value Normal Range AV Vmax 1.62 m/sec - AV VTI 30.33 cm - AV peak gradient 10.56 mmHg - AV mean gradient 4.7 mmHg - LVOT diameter 2.06 cm - LVOT Vmax 1.11 m/sec - LVOT VTI 22.86 cm - LVOT peak gradient 4.93 mmHg - LVOT mean gradient 2.56 mmHg - SV LVOT 76.46 ml - TOM (continuity Vmax) 2.29 cm2 - TOM (continuity VTI) 2.52 cm2 - Tricuspid Valve Name Value Normal Range TR Vmax 1.73 m/sec - TR peak gradient 11.98 mmHg - Pulmonic Valve/Qp:Qs Name Value Normal Range PV Vmax 0.92 m/sec - PV peak gradient 3.41 mmHg - PV acceleration time 114.18 msec - Ordoñez/IV: Voiding Method Toilet IV Catheter Type [Right INT / Saline Lock Antecubital] Active Medications - Current Medications Current Medications: Generic Name Dose Route Start Last Admin Trade Name Freq PRN Reason Stop Dose Admin Aspirin 325 mg 05/29/20 10:00 05/29/20 11:47 Aspirin PO Not Given QDAY [facility] Atorvastatin Calcium 40 mg 05/29/20 22:00 05/30/20 00:50 Lipitor PO 40 mg QHS [facility] Administration Cyclobenzaprine HCl 10 mg 05/29/20 06:25 05/30/20 00:50 Flexeril PO 10 mg Q8H PRN Administration Muscle Spasm Dextrose 50 ml 05/29/20 23:33 D50w (25gm) Syringe IV Q30MIN PRN Hypoglycemia Protocol Hydrochlorothiazide 12.5 mg 05/30/20 10:00 Hctz PO QDAY [facility] Insulin Human Lispro 0 unit 05/30/20 07:30 05/30/20 08:37 Humalog SUB-Q 4 unit ACHS [facility] Administration Protocol Levothyroxine Sodium 50 mcg 05/30/20 06:00 05/30/20 06:42 Synthroid PO 50 mcg QAM@0600 [facility] Administration Ondansetron HCl 4 mg 05/29/20 06:16 05/29/20 05:45 Zofran IV 4 mg Q8H PRN Administration Nausea And Vomiting Nutrition/Malnutrition Assess - Dietary Evaluation Nutrition/Malnutrition Findings: Nutrition Notes Start: 05/30/20 11:13 Freq: Status: Active Protocol: Document 05/30/20 11:13 LM (Rec: 05/30/20 11:26 LM [id number]) Nutrition Notes Need for Assessment generated from: MD Order,Education Initial or Follow up Brief Note Current Diagnosis Diabetes,Hypertension,Stroke Weight Status Morbidly Obese Subjective/Other Information MD consult for diet education. Pt with no recent wt loss. Pt ststed she eats cereal with fruit, soups, sandwiches and some times fast food. Pt also stated she has been drinking soda and her family has been eating a lot of fried foots lately. Provided heart healthy and DM diet education for pt. Discussed portions and choosing whole grains, lean meats, and carbonated water in place of soda. Discussed foods high in sodium to avoid (canned foods and soups, fried foods, certain salad dressings, suaces, and seasonings. Also discussed the plate method with pt. #1 Nutrition Diagnosis Food and nutrition-related knowledge deficit Etiology No prior heart healthy diet education and not receiving any DM diet education for 10 years As Evidenced by Signs and Symptoms pt wanting diet education, POC glucose 257 Nutrition Intervention Teaching Recipient Patient Learning Readiness Good Teaching Methods Discussion,Handout Education Handouts Provided Carbohydrate Counting for People with Diabetes and Heart Healthy Barriers to Learning Environmental RD phone number provided Yes Patient aware of follow up options Yes Revisit per MD consult or patient Sign Off request:
[2020-05-30] MEDS: hydroCHLOROthiazide 12.5 MG CAP PO SCH (12:32)
[2020-05-30] MEDS: ASPIRIN 325 MG TAB PO SCH (12:32)
[2020-05-30] MEDS: APIXABAN 5 MG TAB PO SCH (22:15)
[2020-05-31] MEDS: LEVOTHYROXINE 50 MCG TAB PO SCH (06:46)
[2020-05-31] MEDS: INSULIN LISPRO 100 UNIT/ML SUB-Q SCH ×3 (08:16→16:40)
[2020-05-31] MEDS: CYCLOBENZAPRINE 10 MG TAB PO PRN (08:20)
[2020-05-31] MEDS: APIXABAN 5 MG TAB PO SCH (09:00)
[2020-05-31] MEDS: hydroCHLOROthiazide 12.5 MG CAP PO SCH (09:00)
[2020-05-31] MEDS ORDERED: APIXABAN 5 MG TAB PO SCH (10:00)
[2020-05-31] MEDS ORDERED: ASPIRIN 81 MG TAB CHEW PO SCH (10:00)
--- NOTE | 2020-05-31 14:28 | Progress Note ---
Assessment and Plan - Patient Problems (1) CVA (cerebral vascular accident) Current Visit: Yes Status: Acute Plan to address problem: - Her MRI brain and CTA are unremarkable - 05/30 Echo: EF 40-45%, mild MR, trace TR - 05/29 CArotid duplex: No hemodynamically significant stenosis by NASCET criteria. Doppler velocities indicate less than 50% luminal narrowing bilaterally. - ASA 81 mg daily - Lipitor 40 mg - PT/ OT eval pending - REstarted on home ELiquis (2) HTN (hypertension) Current Visit: Yes Status: Acute Plan to address problem: - Continue HCTZ - BP monitoring per protocol (3) Diabetes mellitus Current Visit: Yes Status: Acute Plan to address problem: - Accuchecks ACHS -Carb controlled diet - SSI (4) Hypothyroid Current Visit: Yes Status: Acute Plan to address problem: - Continue home levothyroxine History Interval history: 49 female with DM, HTN, Hypothyroidism and TIA presented to [facility] with c/o bilateral LE weakness after waking with a slurred speech. Neurology was c onsulted. Carotid duplex, echo, MRI Brain were completed which showed no acute abnormality and her NIHSS returned to 0. This morning she states her leg pain is better. Hospitalist Physical - Constitutional Vitals: Temp Pulse Resp BP Pulse Ox 98.3 F 77 18 117/66 99 05/31/20 11:41 05/31/20 11:41 05/31/20 11:41 05/31/20 11:41 05/31/20 11:41 General appearance: Present: no acute distress - EENT Eyes: Present: PERRL, EOM intact ENT: hearing intact, clear oral mucosa - Neck Neck: Present: supple, normal ROM - Respiratory Respiratory effort: normal Respiratory: bilateral: CTA - Cardiovascular Rhythm: regular Heart Sounds: Present: S1 & S2. Absent: systolic murmur, diastolic murmur - Extremities Extremities: no ischemia, pulses intact, pulses symmetrical - Abdominal General gastrointestinal: soft, non-tender, normal bowel sounds - Integumentary Integumentary: Present: clear, warm, dry - Psychiatric Psychiatric: appropriate mood/affect, cooperative - Neurologic Neurologic: CNII-XII intact, no focal deficits, moves all extremities (bilateral LE tender to palpation) - Allied Health Allied health notes reviewed: nursing Results - Labs CBC & Chem 7: 05/29/20 03:18 05/29/20 03:18 Labs: Laboratory Last Values WBC 9.0 K/mm3 (4.5-11.0) 05/29/20 03:18 RBC 5.15 M/mm3 (3.65-5.03) H 05/29/20 03:18 Hgb 9.8 gm/dl (10.1-14.3) L 05/29/20 03:18 Hct 32.8 % (30.3-42.9) 05/29/20 03:18 MCV 64 fl (79-97) L 05/29/20 03:18 MCH 19 pg (28-32) L 05/29/20 03:18 MCHC 30 % (30-34) 05/29/20 03:18 RDW 19.9 % (13.2-15.2) H 05/29/20 03:18 Plt Count 258 K/mm3 (140-440) 05/29/20 03:18 Lymph % (Auto) 23.2 % (13.4-35.0) 05/29/20 03:18 Polk % (Auto) 8.0 % (0.0-7.3) H 05/29/20 03:18 Eos % (Auto) 0.8 % (0.0-4.3) 05/29/20 03:18 Baso % (Auto) 1.1 % (0.0-1.8) 05/29/20 03:18 Lymph # 2.1 K/mm3 (1.2-5.4) 05/29/20 03:18 Polk # 0.7 K/mm3 (0.0-0.8) 05/29/20 03:18 Eos # 0.1 K/mm3 (0.0-0.4) 05/29/20 03:18 Baso # 0.1 K/mm3 (0.0-0.1) 05/29/20 03:18 Seg Neutrophils % 66.9 % (40.0-70.0) 05/29/20 03:18 Seg Neutrophils # 6.0 K/mm3 (1.8-7.7) 05/29/20 03:18 PT 14.3 Sec. (12.2-14.9) 05/29/20 03:18 INR 1.10 (0.87-1.13) 05/29/20 03:18 APTT 30.4 Sec. (24.2-36.6) 05/29/20 03:18 Thrombin Time 17.4 Sec. (15.1-19.6) 05/29/20 03:18 VBG pH 7.409 (7.320-7.420) 05/29/20 03:18 Sodium 130 mmol/L (137-145) L 05/29/20 03:18 Potassium 3.8 mmol/L (3.6-5.0) 05/29/20 03:18 Chloride 92.8 mmol/L (98-107) L 05/29/20 03:18 Carbon Dioxide 26 mmol/L (22-30) 05/29/20 03:18 Anion Gap 15 mmol/L 05/29/20 03:18 BUN 15 mg/dL (7-17) 05/29/20 03:18 Creatinine 0.8 mg/dL (0.7-1.2) 05/29/20 03:18 Estimated GFR > 60 ml/min 05/29/20 03:18 BUN/Creatinine Ratio 19 % 05/29/20 03:18 Glucose 361 mg/dL (65-100) H 05/29/20 03:18 POC Glucose 280 (70-105) H 05/31/20 11:54 Calcium 8.9 mg/dL (8.4-10.2) 05/29/20 03:18 Urine Color Yellow (Yellow) 05/29/20 06:57 Urine Turbidity Clear (Clear) 05/29/20 06:57 Urine pH 5.0 (5.0-7.0) 05/29/20 06:57 Ur Specific Young Harris > 1.059 (1.003-1.030) H 05/29/20 06:57 Urine Protein <15 mg/dl mg/dL (Negative) 05/29/20 06:57 Urine Glucose (UA) >=500 mg/dL (Negative) 05/29/20 06:57 Urine Ketones Neg mg/dL (Negative) 05/29/20 06:57 Urine Blood Neg (Negative) 05/29/20 06:57 Urine Nitrite Neg (Negative) 05/29/20 06:57 Urine Bilirubin Neg (Negative) 05/29/20 06:57 Urine Urobilinogen < 2.0 mg/dL (<2.0) 05/29/20 06:57 Ur Leukocyte Esterase Neg (Negative) 05/29/20 06:57 Urine WBC (Auto) 1.0 /HPF (0.0-6.0) 05/29/20 06:57 Urine RBC (Auto) 3.0 /HPF (0.0-6.0) 05/29/20 06:57 U Epithel Cells (Auto) 1.0 /HPF (0-13.0) 05/29/20 06:57 Urine Bacteria (Auto) 1+ /HPF (Negative) 05/29/20 06:57 Urine Mucus Few /HPF 05/29/20 06:57 - Diagnostic Impressions Diagnostic Impressions: Echocardiogram 05/29/20 06:08 Transthoracic Echocardiogram Indication: CVA BP: 142/77 HR: 67 Conclusions *The left ventricular size is mild to moderately dilated. *Global left ventricular systolic function is moderately decreased. *The estimated ejection fraction is 40-45%. *There is mild mitral regurgitation. *There is trace tricuspid regurgitation. *A patent foramen ovale is not demonstrated by agitated saline contrast. Findings Left Ventricle: The left ventricular size is mild to moderately dilated. Mild concentric left ventricular hypertrophy is observed. Global left ventricular systolic function is moderately decreased. The estimated ejection fraction is 40-45%. Left Atrium: The left atrial chamber size is normal. Right Ventricle: The right ventricular cavity size is normal. The right ventricular global systolic function is normal. Right Atrium: The right atrial cavity size is normal. A patent foramen ovale is not demonstrated by agitated saline contrast. Aortic Valve: The aortic valve is trileaflet. There is no evidence of aortic regurgitation. There is no evidence of aortic stenosis. Mitral Valve: The mitral valve leaflets appear normal. There is mild mitral regurgitation. There is no evidence of mitral stenosis. Tricuspid Valve: The tricuspid valve leaflets are normal. There is trace tricuspid regurgitation. No pulmonary hypertension is noted. Pulmonic Valve: There is trace pulmonic regurgitation. Pericardium: There is no pericardial effusion. Aorta: There is no dilatation of the ascending aorta. There is no dilatation of the aortic root. Venous: The inferior vena cava appears normal in size. Contrast: Intravenous agitated saline contrast was used to assess intracardiac shunting. Measurements Chambers 2D Name Value Normal Range IVSd (2D) 1.04 cm (0.6 - 1.1) LVPWd (2D) 1.01 cm (0.6 - 1.1) LVIDd (2D) 4.15 cm (3.7 - 5.6) LVIDs (2D) 3.15 cm (2 - 3.8) LV FS (2D) 24.13 % - EF Teichholz (2D) 48.45 % - Ao root diameter (2D) 2.7 cm (2 - 3.7) Volumes/Mass Name Value Normal Range LA ESV SP 4CH (A/L) 25.07 ml - LA ESV SP 2CH (A/L) 26.74 ml - LA ESV BP (A/L) 26.95 ml - LA ESV SP 4CH (MOD) 23.68 ml - LA ESV SP 2CH (MOD) 25.62 ml - Diastolic/Systolic Function Name Value Normal Range MV E-wave Vmax 0.67 m/sec - MV deceleration time 221.17 msec - MV A-wave Vmax 0.73 m/sec - MV E:A ratio 0.93 ratio - Aortic Valve Name Value Normal Range AV Vmax 1.62 m/sec - AV VTI 30.33 cm - AV peak gradient 10.56 mmHg - AV mean gradient 4.7 mmHg - LVOT diameter 2.06 cm - LVOT Vmax 1.11 m/sec - LVOT VTI 22.86 cm - LVOT peak gradient 4.93 mmHg - LVOT mean gradient 2.56 mmHg - SV LVOT 76.46 ml - TOM (continuity Vmax) 2.29 cm2 - TOM (continuity VTI) 2.52 cm2 - Tricuspid Valve Name Value Normal Range TR Vmax 1.73 m/sec - TR peak gradient 11.98 mmHg - Pulmonic Valve/Qp:Qs Name Value Normal Range PV Vmax 0.92 m/sec - PV peak gradient 3.41 mmHg - PV acceleration time 114.18 msec - Ordoñez/IV: Voiding Method Toilet IV Catheter Type [Right INT / Saline Lock Antecubital] Active Medications - Current Medications Current Medications: Generic Name Dose Route Start Last Admin Trade Name Freq PRN Reason Stop Dose Admin Apixaban 5 mg 05/30/20 22:00 05/31/20 09:00 Eliquis PO 5 mg Q12HR WESTLEY Administration Protocol Aspirin 81 mg 05/31/20 10:00 05/31/20 09:00 Baby Aspirin PO 81 mg QDAY WESTLEY Administration Atorvastatin Calcium 40 mg 05/29/20 22:00 05/30/20 22:15 Lipitor PO 40 mg QHS WESTLEY Administration Cyclobenzaprine HCl 10 mg 05/29/20 06:25 05/31/20 08:20 Flexeril PO 10 mg Q8H PRN Administration Muscle Spasm Dextrose 50 ml 05/29/20 23:33 D50w (25gm) Syringe IV Q30MIN PRN Hypoglycemia Protocol Hydrochlorothiazide 12.5 mg 05/30/20 10:00 05/31/20 09:00 Hctz PO 12.5 mg QDAY WESTLEY Administration Insulin Human Lispro 0 unit 05/30/20 07:30 05/31/20 12:20 Humalog SUB-Q 4 unit ACHS WESTLEY Administration Protocol Levothyroxine Sodium 50 mcg 05/30/20 06:00 05/31/20 06:46 Synthroid PO 50 mcg QAM@0600 WESTLEY Administration Ondansetron HCl 4 mg 05/29/20 06:16 05/29/20 05:45 Zofran IV 4 mg Q8H PRN Administration Nausea And Vomiting Nutrition/Malnutrition Assess - Dietary Evaluation Nutrition/Malnutrition Findings: Nutrition Notes Start: 05/30/20 11:13 Freq: Status: Active Protocol: Document 05/30/20 11:13 LM (Rec: 05/30/20 11:26 LM [id number]) Nutrition Notes Need for Assessment generated from: MD Order,Education Initial or Follow up Brief Note Current Diagnosis Diabetes,Hypertension,Stroke Weight Status Morbidly Obese Subjective/Other Information MD consult for diet education. Pt with no recent wt loss. Pt ststed she eats cereal with fruit, soups, sandwiches and some times fast food. Pt also stated she has been drinking soda and her family has been eating a lot of fried foots lately. Provided heart healthy and DM diet education for pt. Discussed portions and choosing whole grains, lean meats, and carbonated water in place of soda. Discussed foods high in sodium to avoid (canned foods and soups, fried foods, certain salad dressings, suaces, and seasonings. Also discussed the plate method with pt. #1 Nutrition Diagnosis Food and nutrition-related knowledge deficit Etiology No prior heart healthy diet education and not receiving any DM diet education for 10 years As Evidenced by Signs and Symptoms pt wanting diet education, POC glucose 257 Nutrition Intervention Teaching Recipient Patient Learning Readiness Good Teaching Methods Discussion,Handout Education Handouts Provided Carbohydrate Counting for People with Diabetes and Heart Healthy Barriers to Learning Environmental RD phone number provided Yes Patient aware of follow up options Yes Revisit per MD consult or patient Sign Off request:
--- NOTE | 2020-05-31 16:29 | Discharge Summary ---
Providers - Providers Date of Admission: 05/29/20 06:11 Attending physician: SHAWN ZHU 05/29/20 06:06 Consult to Physician [CONS] Routine Comment: Consulting Provider: DANA ZURITA Physician Instructions: Reason For Exam: CVA 05/29/20 06:09 Physical Therapy Evaluation and Treat [CONS] Routine Comment: Reason For Exam: WEAKNESS OF THE LOWER LIMBS 05/29/20 06:10 Speech Therapy Evaluation and Treat [CONS] Routine Reason For Exam: SLURRED SPEECH 05/29/20 23:33 Consult to Dietitian/Nutrition [CONS] Routine Physician Instructions: Reason For Exam: Reason for Consult: Diet education Primary care physician: CYANIDE POT TENDER Hospitalization Condition: Good Pertinent studies: - MRI brain and CTA are unremarkable - 05/30 Echo: EF 40-45%, mild MR, trace TR - 05/29 Carotid duplex: No hemodynamically significant stenosis by NASCET criteria. Doppler velocities indicate less than 50% luminal narrowing bilaterally. Procedures: - 05/30 MRI: no acute abnormality - 05/30 Echo: EF 40-45%, mild MR, trace TR - 05/29 Carotid duplex: No hemodynamically significant stenosis by NASCET criteria. Doppler velocities indicate less than 50% luminal narrowing bilaterally. Hospital course: 49 year old female with DM, HTN, hypothyroidism and TIA presented to [facility] with c/o bilateral LE weakness after waking with a slurred speech. Neurology was consulted. Carotid duplex and MRI Brain were completed which showed no acute abnormality and her NIHSS returned to 0. Echocardiogram shows EF 40-45%, mild MR, trace TR. She is being discharged on lipitor. Disposition: DC-01 TO HOME OR SELFCARE - Discharge Diagnoses (1) CVA (cerebral vascular accident) Status: Acute Core Measure Documentation - Palliative Care Palliative Care/ Comfort Measures: Not Applicable - Core Measures Any of the following diagnoses?: stroke - Stroke Discharge Requirements Statin for LDL = or >70 mg/dl on DC: Yes Anticoag for atrial fib/atrial flutter: Not Applicable Antithrombotic for ischemic stroke: Yes Exam - Constitutional Vitals: Temp Pulse Resp BP Pulse Ox 98.3 F 77 18 117/66 99 05/31/20 11:41 05/31/20 11:41 05/31/20 11:41 05/31/20 11:41 05/31/20 11:41 General appearance: Present: no acute distress - EENT Eyes: Present: PERRL, EOM intact ENT: hearing intact, clear oral mucosa - Neck Neck: Present: supple, normal ROM - Respiratory Respiratory effort: normal Respiratory: bilateral: CTA - Cardiovascular Rhythm: regular Heart Sounds: Present: S1 & S2. Absent: systolic murmur, diastolic murmur - Extremities Extremities: no ischemia, pulses intact, pulses symmetrical, No edema, normal temperature (tender BLE) - Abdominal General gastrointestinal: Present: soft, non-tender, normal bowel sounds - Integumentary Integumentary: Present: clear, warm, dry - Musculoskeletal Musculoskeletal: strength equal bilaterally - Psychiatric Psychiatric: appropriate mood/affect, cooperative - Neurologic Neurologic: CNII-XII intact, no focal deficits, moves all extremities - Allied Health Allied health notes reviewed: nursing Plan Activity: advance as tolerated Diet: low fat, low cholesterol Follow up with: PRIMARY CAREMD [Primary Care Provider] - 3-5 Days DANA ZURITA MD [Staff Physician] - 7 Days
[2020-05-31 18:09] VITALS: BP 152/79
--- NOTE | 2020-05-31 19:20 | Discharge Summary ---
Providers - Providers Date of Admission: 05/29/20 06:11 Attending physician: SHAWN ZHU 05/29/20 06:06 Consult to Physician [CONS] Routine Comment: Consulting Provider: DANA ZURITA Physician Instructions: Reason For Exam: CVA 05/29/20 06:09 Physical Therapy Evaluation and Treat [CONS] Routine Comment: Reason For Exam: WEAKNESS OF THE LOWER LIMBS 05/29/20 06:10 Speech Therapy Evaluation and Treat [CONS] Routine Reason For Exam: SLURRED SPEECH 05/29/20 23:33 Consult to Dietitian/Nutrition [CONS] Routine Physician Instructions: Reason For Exam: Reason for Consult: Diet education Primary care physician: PRODUCT CRAFTSMAN Hospitalization Condition: Good Pertinent studies: - MRI brain and CTA are unremarkable - 05/30 Echo: EF 40-45%, mild MR, trace TR - 05/29 Carotid duplex: No hemodynamically significant stenosis by NASCET criteria. Doppler velocities indicate less than 50% luminal narrowing bilaterally. Hospital course: 49 year old female with DM, HTN, hypothyroidism and TIA presented to [facility] with c/o bilateral LE weakness after waking with a slurred speech. Neurology was consulted. Carotid duplex and MRI Brain were completed which showed no acute abnormality and her NIHSS returned to 0. Echocardiogram shows EF 40-45%, mild MR, trace TR. She is being discharged on lipitor. Disposition: DC-01 TO HOME OR SELFCARE - Discharge Diagnoses (1) TIA (transient ischemic attack) Status: Acute Core Measure Documentation - Palliative Care Palliative Care/ Comfort Measures: Not Applicable - Core Measures Any of the following diagnoses?: stroke (TIA) - Stroke Discharge Requirements Statin for LDL = or >70 mg/dl on DC: Yes Anticoag for atrial fib/atrial flutter: Not Applicable Antithrombotic for ischemic stroke: Yes Exam - Constitutional Vitals: Temp Pulse Resp BP Pulse Ox 98.3 F 78 18 152/79 99 05/31/20 16:29 05/31/20 16:29 05/31/20 16:29 05/31/20 16:29 05/31/20 16:31 General appearance: Present: no acute distress - EENT Eyes: Present: PERRL, EOM intact ENT: hearing intact - Neck Neck: Present: supple, normal ROM - Respiratory Respiratory effort: normal Respiratory: bilateral: CTA - Cardiovascular Rhythm: regular Heart Sounds: Present: S1 & S2. Absent: systolic murmur, diastolic murmur - Extremities Extremities: no ischemia, pulses intact, pulses symmetrical, No edema, normal temperature, normal color, Full ROM Peripheral Pulses: within normal limits - Abdominal General gastrointestinal: Present: non-tender, normal bowel sounds - Integumentary Integumentary: Present: clear, warm, dry - Musculoskeletal Musculoskeletal: strength equal bilaterally - Psychiatric Psychiatric: appropriate mood/affect, cooperative - Neurologic Neurologic: CNII-XII intact, no focal deficits, moves all extremities, gait normal - Allied Health Allied health notes reviewed: nursing Plan Activity: no restrictions Diet: low fat, low cholesterol Follow up with: DANA ZURITA MD [Staff Physician] - 7 Days PRIMARY CARE, [Primary Care Provider] - 3-5 Days Prescriptions: Aspirin [Aspirin BABY CHEW TAB] 81 mg PO QDAY 30 Days #30 tab Apixaban [Eliquis] 5 mg PO QDAY 30 Days #30 tab hydroCHLOROthiazide [Hydrochlorothiazide] 12.5 mg PO QDAY 30 Days #30 cap Simvastatin 40 mg PO QDAY 30 Days #30 tab Levothyroxine [Synthroid] 50 mcg PO QAM 30 Days #30 tab
== END 2020-05-31 19:00 | disposition home or self-care (01) | DRG 69 ==
LOC: ED 02:27 → 4A 06:11
PROVIDERS: ADMIT Internal Medicine; ATTEND Hospitalist
DX: G45.9 Transient cerebral ischemic attack, unspecified (principal); Z68.43 Body mass index [BMI] 50.0-59.9, adult; R47.1 Dysarthria and anarthria; I10 Essential (primary) hypertension; E11.9 Type 2 diabetes mellitus without complications; Z79.899 Other long term (current) drug therapy; R29.702 NIHSS score 2; Z79.01 Long term (current) use of anticoagulants; Z79.82 Long term (current) use of aspirin; Z79.4 Long term (current) use of insulin; Z79.84 Long term (current) use of oral hypoglycemic drugs; E66.01 Morbid (severe) obesity due to excess calories; Z88.8 Allergy status to other drugs, medicaments and biological substances; E03.9 Hypothyroidism, unspecified
CPT/HCPCS: 36415; 70450; 70496; 70498; 70551; 80048; 81001; 82805; 82962; 85025; 85610; 85670; 85730; 93005; 93306; 93880; G0378; A9270-GY; J1815; J2405; Q9967